=== PATIENT | female | born 1980 | race Caucasian/White ===

== ENCOUNTER 2022-10-11 18:40 | Emergency (ER) | payer OTHER, SELFPAY ==
[2022-10-11 18:44] VITALS: BP 154/88; PULSE 72; RESP 16; TEMP 36.4; O2SAT 100
--- NOTE | 2022-10-11 18:55 | W.ED.GENAD ---
Discharge Plan Disposition Patient Disposition: Home Condition: Good Discharge Details Clinical Impression: Synovial cyst of popliteal space [Hutchinson], right knee, Leg pain, right Primary Care Provider: Unknown,Unknown ED Provider: Kishore Crane Discharge Instructions Instructions: Leg Pain (ED) Additional Instructions: At this time we did not see any evidence of large clot on your ultrasound. You do have evidence of a Hutchinson's cyst. You can take Tylenol and Motrin for this as well as ice to the affected area. Please call the miter grinder operator tomorrow at 7 or 8 AM to schedule a formal appointment to come back for your ultrasound tomorrow. You have been given a blood thinner at this time. Please avoid any activities which could result in trauma, lacerations, or trauma to your head. If you notice any worsening of your symptoms, or any new symptoms such as vomiting, diarrhea, fever, chills, shortness of breath, chest pain, numbness, weakness, or fainting , please return immediately to the emergency department for reevaluation. Please follow up with your primary care provider as soon as possible for reassessment and reevaluation. As always, it was a pleasure participating in your medical care today. Medical Decision Making 42-year-old female with no significant past medical history except for cutaneous T-cell lymphoma which was treated, who presents today for evaluation of right leg pain. Patient states that 4 days ago she flew in from [place] on a 6-hour flight. The next day she developed mild right calf and posterior knee pain. Pain is described as achy in nature. She denies any trauma or injury to the knee otherwise. She denies any numbness or tingling. She denies a history of blood clots. No other complaints at this time. No chest pain or shortness of breath. No family history of blood clots or DVTs. She is not on any control. Ultrasound showed no evidence of DVT. However this was a limited bedside ultrasound. Discussed risk and benefits, patient elected to go ahead with subcutaneous anticoagulants for today. Will give 1.5 mg/kg of Lovenox subcu, followed by prompt ultrasound follow-up tomorrow morning here in the ED for formal ultrasonography. I have extensively reviewed the treatment plan and discharge instructions with the patient. I have addressed all patient concerns at this time. The patient was made aware of what symptoms to monitor for that would warrant a return to the emergency department. Discussed the plan with the patient, they demonstrate verbal understanding and agreement with our assessment and plan at this time. The documentation in this chart was dictated using [employer] dictation software. Please excuse any dictation errors. HPI General Date/Time Provider Initiated Documentation: 10/11/22 18:43. HPI Narrative: 42-year-old female with no significant past medical history except for cutaneous T-cell lymphoma which was treated, who presents today for evaluation of right leg pain. Patient states that 4 days ago she flew in from [place] on a 6-hour flight. The next day she developed mild right calf and posterior knee pain. Pain is described as achy in nature. She denies any trauma or injury to the knee otherwise. She denies any numbness or tingling. She denies a history of blood clots. No other complaints at this time. No chest pain or shortness of breath. No family history of blood clots or DVTs. She is not on any control. General Stated Complaint: Vascular ROXANE: 3 Review of Systems All systems reviewed & are unremarkable except as noted in HPI and below PFSH All Active Problems (Updated 10/11/22 @ 19:29 by Kishore Crane DO) Synovial cyst of popliteal space [Hutchinson], right knee (Acute) Leg pain, right (Acute) Social History Smoking risk assessment performed?: No Do you feel safe at home: Yes Do you feel safe in your relationship?: Yes Exam Narrative Exam Narrative: 1.Const: Well-nourished, Well-developed, appearing stated age 2.Eyes: PERRL, no conjunctival injection, and symmetrical lids. 3.ENT: Atraumatic external nose and ears. Moist MM. Neck: Symmetric, trachea midline, No thyromegaly. 4.CVS: +S1/S2, No murmurs or gallops. Peripheral pulses 2+ and equal in all extremities. Brisk capillary refill in all extremities. 5.RESP: Unlabored respiratory effort. Clear to auscultation bilaterally. No wheezes rales or rhonchi 6.GI: Soft, Nontender/Nondistended, No hepatosplenomegaly. No guarding or rebound. 7.MSK: Normocephalic/Atraumatic, Extremities w/o deformity or ttp No cyanosis or clubbing, Normal movement of all extremities 8.Skin: Warm, Dry. No rashes or lesions. 9.Neuro: food science technician II-XII grossly intact. Sensation grossly intact, no focal neurologic deficits. 10.Psych: (AAO) x3. Appropriate mood and affect Course Vital Signs Vital signs: Vital Signs Temperature 36.4 C L 10/11/22 18:44 Pulse 72 10/11/22 18:44 Respiratory Rate 16 10/11/22 18:44 Blood Pressure 154/88 H 10/11/22 18:44 Pulse Oximetry 100 10/11/22 18:44 Temperature 36.4 C L 10/11/22 18:44 Temperature Source Skin 10/11/22 18:44 Pulse 72 10/11/22 18:44 Respiratory Rate 16 10/11/22 18:44 Blood Pressure 154/88 H 10/11/22 18:44 Blood Pressure Position Sitting 10/11/22 18:44 Pulse Oximetry 100 10/11/22 18:44 Oxygen Delivery Method Room Air 10/11/22 18:44 Oxygen Flow Rate 0 10/11/22 18:44 Pain Level 2 10/11/22 18:44
[2022-10-11] MEDS: Enoxaparin 100 MG/ML SYR SC (19:36)
== END 2022-10-11 19:39 | disposition home or self-care (01) ==
PROVIDERS: Emergency Provider Student in an Organized Health Care Education/Training Program
DX: M79.661 Pain in right lower leg (principal); M71.21 Synovial cyst of popliteal space [Baker], right knee
CPT/HCPCS: 76882; 99284; J1650